=== PATIENT | male | born 1965 | race Caucasian/White ===

== ENCOUNTER → 2024-01-06 | Outpatient (REF) | payer OTHER, SELFPAY | LOC: DHSLP | PROVIDERS: ATTENDING PHYSICIAN Internal Medicine | DX: G47.33 Obstructive sleep apnea (adult) (pediatric) (principal); R09.02 Hypoxemia | CPT/HCPCS: 95811 ==

== ENCOUNTER 2024-04-16 14:55 | Emergency (ER) | payer OTHER, SELFPAY ==
[2024-04-16 14:57] VITALS: BP 119/84
[2024-04-16 15:35] VITALS: BMI 52.8
[2024-04-16 15:51] VITALS: BP 119/101
--- NOTE | 2024-04-16 15:52 | ED.GENMED ---
History of Present Illness
General
Chief Complaint: Abdominal Symptoms
Source: patient
Exam Limitations: none
Time Seen by Provider: 04/16/24 15:38
Nursing documentation reviewed up to this point in time: agreed with
History of Present Illness
History of Present Illness:
58 yo male w h/o IBS, NIDDM, anxiety, morbid obesity, sleep apnea/CPAP, presents for nausea and vomiting. States 10 a.m. sudden onset vomiting, has vomited 3 times, last 2.5 hours ago. Had diarrhea 4 hours ago but states he has chronic frequent
intermittent diarrhea and would not be here for diarrhea.
Denies f/c. Denies CP, SOB, Abd pain. Denies nausea at this time.
Medications:
Wellbutrin
Adderall
Mg++
Propranolol
Finasteride
Past History
Past History
ED Past Medical History: NIDDM, Psychiatric (anxiety/depression) and Other (Sleep apnea on CPAP)
Review of Systems
Review of Systems
Allergies reviewed?: Yes
All Other Systems: ROS reviewed and negative except as documented in HPI and ROS
Constitutional: Denies fever
EENT: Denies sore throat
Respiratory: Denies trouble breathing
Cardiac: Denies chest pain
ABD/GI: Reports nausea, vomiting and other (chronic intermittent diarrhea); Denies abdominal pain
: Reports incontinence (chronic urine incontinence takes Tamsulosin); Denies dysuria or difficulty voiding
Musculoskeletal: Reports no symptoms; Denies edema
Skin: Reports no symptoms
Neurological: Reports no symptoms
Phy Exam
Physical Exam
Physical Exam:
GENERAL: No acute distress. A&Ox3.
CONSTITUTIONAL: Afebrile.
EYES: clear, conjunctivae normal
ENMT: dry mucus membranes, Pharynx nl
RESPIRATORY: Regular respirations, nonlabored, lungs clear.
CARDIOVASCULAR: Regular rate and rhythm, no murmurs, no rubs.
GI: Soft, obese, nontender, normal BS
MUSCULOSKELETAL: Moves with ease. Well perfused. No edema
SKIN: Warm, dry, pink
PSYCH: Normal mood and affect. Well kept, interactive and appropriate
NEUROLOGIC: Awake, alert and oriented. No focal neurological deficits
Course
Orders/Labs/Results
Orders:
Orders
04/16/24 15:51
0.9% Sodium Chloride 1000 ml [Nss] 1,000 ml IV BOLUS
Ondansetron Injectable [Zofran] 4 mg IV NOW STA
04/16/24 15:52
COVID-19 Antigen Urgent
Source: Nasal Swab
Complete Blood Count/With Diff Urgent
Comprehensive Metabolic Panel Urgent
04/16/24 17:49
Acetaminophen [Tylenol] 1,000 mg PO NOW STA
Abnormal Lab Results
04/16/24
15:52
WBC 17.4 H 10^3/uL
(4.8-10.8)
RBC 6.33 H 10^6/uL
(4.70-6.10)
RDW 14.6 H %
(11.5-14.5)
Abs Immat Gran (auto) 0.1 H 10^3/uL
(0-0.05)
Absolute Neuts (auto) 16.2 H 10^3/uL
(1.4-6.5)
Absolute Lymphs (auto) 0.2 L 10^3/uL
(1.2-3.4)
Absolute Monos (auto) 0.9 H 10^3/uL
(0.1-0.6)
Neutrophils % 92.7 H %
(42.2-75.2)
Lymphocytes % 1.4 L %
(20.5-51.1)
Carbon Dioxide 21 L mmol/L
(22-30)
Glucose 168 H mg/dl
(70-99)
04/16/24 15:52
04/16/24 15:52
Vital Signs
Initial and Last Documented VS:
Initial Vital Signs
Temp Pulse Resp BP Pulse Ox
98.1 F 64 16 119/84 94
04/16/24 14:57 04/16/24 14:57 04/16/24 14:57 04/16/24 14:57 04/16/24 14:57
Last Documented Vital Signs
Temp Pulse Resp BP Pulse Ox
100.1 F 99 25 129/88 91
04/16/24 17:54 04/16/24 17:45 04/16/24 17:45 04/16/24 17:00 04/16/24 17:45
MDM/Problems Addressed
Differential Diagnosis Includes:
Gastroenteritis, gastritis
MDM/Problems Addressed:
58 yo male w h/o IBS, NIDDM, anxiety, morbid obesity, sleep apnea/CPAP, presents for nausea and vomiting. States 10 a.m. sudden onset vomiting, has vomited 3 times, last 2.5 hours ago. Had diarrhea 4 hours ago but states he has chronic frequent
intermittent diarrhea and would not be here for diarrhea.
Denies f/c. Denies CP, SOB, Abd pain. Denies nausea at this time.
4:30 p.m.
CBC: WBC 17.4 otherwise no clinically significant abnormality (most likely reactive to n/v) Afebrile, pt has no respiratory or UTI symptoms, abdomen benign. Do not suspect infectious process other than viral GI bug
CMP: normal
Covid neg
5:15 p.m.
Feeling better, denies nausea, toleration po fluids
Decline when offered to send [employer] to his pharmacy
He has appointment with Dr. Landaverde in 5 days. Recommend WBC rechecked then
5:45 p.m.
Pt tolerating crackers, po fluids. No vomiting since arrival
Low grade fever 100.2 Tylenol given
At discharge: pt ambulated out with normal gait
Final diagnosis: viral gastroenteritis.
*Critical Care Note
Total Time (30-74mins, 75-104mins- exclusive of procedures): Not Applicable
ED Attending Note
-
Portions of this chart may have been created with voice recognition software.� Occasional wrong word or��sound alike� substitutions may have occurred due to the inherent limitations of voice recognition software.
Discharge Plan
Departure
Patient Disposition: Home (Routine Discharge)
Date of Disposition: 04/16/24
Time of Disposition:
Patient with high blood pressure during this ER visit?: No
Condition: Good
Discharge Problem:
Gastroenteritis
Instructions: Viral gastroenteritis in adults, Protivin Diet
Referrals:
Balwinder Landaverde, DO [Family Provider] - Keep scheduled appt
Activity Restrictions/Additional Instructions:
As we discussed, other than elevated white blood cell count (which is most likely due to your vomiting), your workup here shows nothing worrisome
Keep appointment with Dr. Landaverde on 04/21 as scheduled and have your WBC's rechecked.
Stick with a bland diet until you feel better.
Interventions
Interventions:
*Risk Screen - Suicide Last Done: 04/16/24 15:36
*General Assessment Last Done: 04/16/24 14:57
*Neglect/Abuse Screening Last Done: 04/16/24 15:36
ED- Fall Risk Assessment Last Done: 04/16/24 16:54
*ED COVID-19 Vaccine History Last Done: 04/16/24 14:57
*Nursing Disposition Last Done: 04/16/24 18:10
[facility] Assessment Last Done: 04/16/24 16:53
Discharge Date and Time
Discharge Date/Time: 04/16/24 18:10
Print Language: [place]IZ[place]
[2024-04-16] MEDS: ZOFRAN 4 MG IV (15:55)
[2024-04-16] MEDS: NSS 1000 IV (15:56)
[2024-04-16 16:00] VITALS: BP 120/101
[2024-04-16 16:00] LABS: % Basophils 0.3 % (0-2); % Eosinophils 0.1 % (0-6); % Immature Granulocytes 0.4 % (0-0.5); % Lymphocytes 1.4 % (20.5-51.1); % Monocytes 5.1 % (1.7-9.3); % Neutrophils 92.7 % (42.2-75.2); Absolute Basophils 0.1 10^3/uL (0-0.2); Absolute Immature Granulocytes 0.1 10^3/uL (0-0.05); Absolute Lymphocytes 0.2 10^3/uL (1.2-3.4); Absolute Monocytes 0.9 10^3/uL (0.1-0.6); Absolute Neutrophils 16.2 10^3/uL (1.4-6.5); Hemoglobin 17.8 g/dL (13.0-18.0); Mean Corp Hgb Conc. 34.2 g/dL (33.0-37.0); Mean Corpuscular Hgb 28.1 pg (27.0-31.0); Mean Corpuscular Volume 82.1 fL (80.0-94.0); Mean Platelet Volume 10.4 fL (7.4-10.4); Nucleated Red Blood Cells % 0 % (-); Platelet Count 312 10^3/uL (130-400); Red Blood Cell Count 6.33 10^6/uL (4.70-6.10); Red Cell Dist. Width 14.6 % (11.5-14.5); White Blood Cell Count 17.4 10^3/uL (4.8-10.8)
[2024-04-16 16:09] LABS: COVID-19 Antigen Negative (Negative)
[2024-04-16 16:10] LABS: ALT (SGPT) 35 U/L (0-50); AST (SGOT) 28 U/L (17-59); Albumin 4.4 g/dl (3.5-5.0); Alkaline Phosphatase 80 U/L (38-126); Blood Urea Nitrogen 18 mg/dl (9-20); Calcium 9.4 mg/dl (8.4-10.2); Carbon Dioxide 21 mmol/L (22-30); Chloride 106 mmol/L (98-107); Estimated Creatinine Clearance > 125 ml/min; Glucose 168 mg/dl (70-99); Potassium 4.6 mmol/L (3.5-5.1); Sodium 140 mmol/L (135-145); Total Bilirubin 1.1 mg/dl (0.2-1.3); Total Protein 7.6 g/dl (6.3-8.2); eGFR > 60.00
[2024-04-16 17:00] VITALS: BP 129/88
[2024-04-16] MEDS: TYLENOL 1000 MG PO (17:51)
== END 2024-04-16 18:10 | disposition home or self-care (01) ==
LOC: EMR 14:55
PROVIDERS: Registered Nurse; EMERGENCY PHYSICIAN Emergency Medicine; FAMILY PHYSICIAN Internal Medicine
DX: K52.9 Noninfective gastroenteritis and colitis, unspecified (principal); R11.2 Nausea with vomiting, unspecified; R19.7 Diarrhea, unspecified; Z11.52 Encounter for screening for COVID-19; E11.9 Type 2 diabetes mellitus without complications; F41.9 Anxiety disorder, unspecified; G47.30 Sleep apnea, unspecified; K58.0 Irritable bowel syndrome with diarrhea; E66.01 Morbid (severe) obesity due to excess calories; Z68.43 Body mass index [BMI] 50.0-59.9, adult; F32.A Depression, unspecified; Z79.84 Long term (current) use of oral hypoglycemic drugs
CPT/HCPCS: 99284; 96374; 96361; 80053; 85025; 87811